=== PATIENT | female | born 1985 | race Hispanic/Latino ===

== ENCOUNTER 2017-10-25 08:17 | Observation (INO) | payer BC ==
[~2017-10-25] VITALS: Ht 165.1 cm; Wt 89.8 kg
[2017-10-25 09:01] LABS: APPEARANCE,URINE CLEAR (CLEAR); BILIRUBIN,URINE NEGATIVE (NEGATIVE); COLOR,URINE YELLOW (YELLOW); GLUCOSE, URINE (UA) NEGATIVE (NEGATIVE); KETONES,URINE NEGATIVE (NEGATIVE); LEUKOCYTE ESTERASE ,URINE TRACE (NEGATIVE); NITRATE,URINE NEGATIVE (NEGATIVE); OCCULT BLOOD,URINE MODERATE (NEGATIVE); PROTEIN,URINE NEGATIVE (NEGATIVE); UROBILINOGEN,URINE 0.2 mg/dL (0.2-1.0)
[2017-10-25 09:14] LABS: BACTERIA,URINE Few /HPF (None Seen); RBC,URINE 0-1 /HPF (0-1); SQUAMOUS EPITHELIAL CELL,UR Moderate /LPF (0-2)
[2017-10-25] MEDS ORDERED: ONDANSETRON HCL 4 MG/2 ML VIAL IVP SCH (09:45)
[2017-10-25] MEDS ORDERED: LACTATED RINGERS 1000ML 1,000 ML IV SCH (09:45)
[2017-10-26] MEDS ORDERED: PREN1COM14 PO (12:46)
== END 2017-10-25 10:53 | disposition home or self-care (01) ==
LOC: EDH 08:17 → LDH 08:26
PROVIDERS: ADMIT Obstetrics & Gynecology; ATTEND Obstetrics & Gynecology
DX: O62.9 Abnormality of forces of labor, unspecified (principal); O75.82 Onset (spontaneous) of labor after 37 completed weeks of gestation but before 39 completed weeks gestation, with delivery by (planned) cesarean section; Z3A.39 39 weeks gestation of pregnancy
CPT/HCPCS: 81001; 99285; G0378 ×2; 96360; 96374; J7120

== ENCOUNTER 2017-10-25 22:57 | Inpatient (IN) | payer BC ==
[2017-10-25] MEDS ORDERED: LACTATED RINGERS 1000ML 1,000 ML IV SCH (23:15)
[2017-10-25 23:30] LABS: APPEARANCE,URINE Clear (CLEAR); BILIRUBIN,URINE Negative (NEGATIVE); COLOR,URINE Yellow (YELLOW); GLUCOSE, URINE (UA) Negative (NEGATIVE); KETONES,URINE 40 mg/dL (NEGATIVE); LEUKOCYTE ESTERASE ,URINE Negative (NEGATIVE); NITRATE,URINE Negative (NEGATIVE); OCCULT BLOOD,URINE Negative (NEGATIVE); PH,URINE 6.5 (5.0-8.0); PROTEIN,URINE Negative (NEGATIVE)
[2017-10-25] MEDS ORDERED: LACTATED RINGERS 1000ML 1,000 ML IV PRN (23:59)
[2017-10-26 00:16] LABS: HEMATOCRIT 35.2 % (36-48); MEAN CORPUSCULAR HEMOGLOBIN 31.1 pg (27.0-33.0); MEAN CORPUSCULAR HGB CONC 35.3 g/dL (32.0-36.0); MEAN CORPUSCULAR VOLUME 88.3 fL (79-99); PLATELET COUNT (AUTO) 245 K/uL (130-400); RED BLOOD CELL COUNT(AUTO) 3.99 MIL/uL (4.00-5.50); RED CELL DISTRIBUTION WIDTH 13.6 % (11.0-15.5); WHITE BLOOD COUNT (AUTO) 20.3 K/uL (4.8-10.8)
[2017-10-26] MEDS ORDERED: MEPERIDINE-PF 25 MG/ML SYG IVP SCH (07:45)
[2017-10-26] MEDS ORDERED: MEPERIDINE-PF 25 MG/ML SYG ONE (07:48)
[2017-10-26] MEDS ORDERED: LACTATED RINGERS 1000ML 1,000 ML IV PRN (09:12)
[2017-10-26] MEDS ORDERED: PROMETHAZINE HCL 25 MG/ML 1ML AMPULE IM PRN (09:15)
[2017-10-26] MEDS ORDERED: NALOXONE HCL 0.4 MG/1 ML ML IV PRN (09:15)
[2017-10-26] MEDS ORDERED: MEPERIDINE-PF 50 MG/ML SYG IVP PRN (09:15)
[2017-10-26] MEDS ORDERED: OXYTOCIN 10 USP UNITS/ML 20 UNIT in LACTATED RINGERS 1000ML 1,000 ML IV SCH (09:15)
[2017-10-26] MEDS ORDERED: EPHEDRINE SULFATE 50 MG/ML AMPULE IVP PRN (09:15)
[2017-10-26] MEDS ORDERED: LACTATED RINGERS 500 ML 500 ML IV PRN (09:15)
[2017-10-26] MEDS ORDERED: MEPERIDINE-PF 50 MG/ML SYG ONE (09:20)
[2017-10-26] MEDS ORDERED: LACTATED RINGERS 1000ML 1,000 ML IV ONE ×2 (09:21→11:38)
[2017-10-26] MEDS ORDERED: PROMETHAZINE HCL 25 MG/ML 1ML AMPULE IM ONE (09:21)
[2017-10-26] MEDS ORDERED: OXYTOCIN 10 USP UNITS/ML ONE ×2 (09:22→11:38)
[2017-10-26] MEDS: OXYTOCIN-LR 20 UNITS/1000 ML 1,000 ML IV SCH ×2 (09:47→12:02)
[2017-10-26] MEDS ORDERED: LIDOCAINE HCL 1% 20 ML VIAL ONE (10:40)
[2017-10-26] MEDS ORDERED: LIDOCAINE HCL/EPINEPHRINE 50 ML VIAL IJ SCH (10:55)
[2017-10-26] MEDS ORDERED: BENZOCAINE/LANOLIN/ALOE VERA 60 ML AEROSOL TP PRN (11:15)
[2017-10-26] MEDS ORDERED: LANOLIN 30GM OINTMENT TP PRN (11:15)
[2017-10-26] MEDS ORDERED: WITCH HAZEL 1 PAD TP PRN (11:15)
[2017-10-26] MEDS ORDERED: ACETAMINOPHEN 325 MG TAB PO PRN (11:15)
[2017-10-26 12:25] VITALS: BP 111/56
[2017-10-26] MEDS: IBUPROFEN 600 MG TABLET PO PRN ×2 (12:30→18:38)
[2017-10-26] MEDS ORDERED: PREN1COM14 PO (12:46)
[2017-10-26 15:34] VITALS: BP 103/53
[2017-10-26 19:25] VITALS: BP 116/58
[2017-10-26] MEDS: DOCUSATE SODIUM 100 MG CAP PO SCH (21:27)
[2017-10-26 23:14] VITALS: BP 108/53
[2017-10-27] MEDS: IBUPROFEN 600 MG TABLET PO PRN ×2 (01:48→09:30)
[2017-10-27 03:13] VITALS: BP 120/69
[2017-10-27 06:04] LABS: HEMATOCRIT 32.2 % (36-48); MEAN CORPUSCULAR HEMOGLOBIN 31.7 pg (27.0-33.0); MEAN CORPUSCULAR HGB CONC 35.6 g/dL (32.0-36.0); MEAN CORPUSCULAR VOLUME 89.1 fL (79-99); PLATELET COUNT (AUTO) 258 K/uL (130-400); RED BLOOD CELL COUNT(AUTO) 3.61 MIL/uL (4.00-5.50); RED CELL DISTRIBUTION WIDTH 13.6 % (11.0-15.5); WHITE BLOOD COUNT (AUTO) 20.5 K/uL (4.8-10.8)
[2017-10-27 07:32] VITALS: BP 93/49
[2017-10-27 08:25] LABS: HEPATITIS Bs ANTIGEN SCREEN P Negative (Negative)
[2017-10-27] MEDS: DOCUSATE SODIUM 100 MG CAP PO SCH (09:27)
[2017-10-27 11:17] VITALS: BP 119/57
[2017-10-27] MEDS ORDERED: IBUP-2077 PO (12:32)
[2017-10-27] MEDS ORDERED: DOCU-116 PO (12:32)
== END 2017-10-27 14:40 | disposition home or self-care (01) | DRG 775 ==
LOC: EDH 22:57 → OBSVTOIN 23:21 → LDH 23:21 → WSH 10-26 12:25
PROVIDERS: ADMIT Obstetrics & Gynecology; ATTEND Obstetrics & Gynecology
PROC: 10E0XZZ Delivery of Products of Conception, External Approach (ICD-10-PCS; principal; 2017-10-26)
PROC: 0HQ9XZZ Repair Perineum Skin, External Approach (ICD-10-PCS; 2017-10-26)
PROC: 10907ZC Drainage of Amniotic Fluid, Therapeutic from Products of Conception, Via Natural or Artificial Opening (ICD-10-PCS; 2017-10-26)
DX: O62.3 Precipitate labor (principal); O70.0 First degree perineal laceration during delivery; Z37.0 Single live birth; Z3A.39 39 weeks gestation of pregnancy
CPT/HCPCS: 36415; 76805; 81003; 85027; 86592; 86850; 86900; 86901; 87340; A4351; J2175; J2550; J2590; J7120